=== PATIENT | female | born 1985 | race Caucasian/White ===

== ENCOUNTER 2016-10-21 17:06 | Emergency (ER) | payer MEDICAID, OTHER ==
[~2016-10-21] VITALS: Ht 157.5 cm; Wt 76.0 kg
[~2016-10-21 17:06] MED LIST: ALBU8.5H5 IH; ARIP10TA13 PO; LOSA25TA5 PO; OMEP20CA16 PO
[2016-10-21 17:12] VITALS: Ht 157.5 cm; Wt 76.0 kg
[2016-10-21] MEDS ORDERED: ONDANSETRON (ODT) 4 MG TAB ODT STA (18:47)
--- NOTE | 2016-10-21 19:09 | ERD ---
ER Documentation Chief Complaint Date/Time DATE: 10/21/16 TIME: 19:07 Chief Complaint Complains of nausea and vomiting x 1 week HPI 31 year old female presents here in the ER for complaints of cough x 1 week, nausea and vomiting, vomiting worst after coughing and eating, has hx of chronic gastritis. Patient has been having dry cough, does not cough up any phlegm or blood. Patient does not have any shortness breath or wheezing. Patient does not have any fever or chills. Patient does not have any sore throat or ear pain. Patient did not take any medications to help with symptoms. She denies any abdominal pain. Patient denies any diarrhea. ROS All systems reviewed and are negative except as per history of present illness. Medications Home Meds Reported Medications Albuterol Sulfate* (Albuterol Sulfate* HFA) 8.5 Gm Hfa.aer.ad, 2 PUFF IH Q4H Y for WHEEZING AND SOB, EA 12/06/13 Aripiprazole* (Abilify*) 10 Mg Tablet, 10 MG PO DAILY, TAB 12/06/13 Losartan Potassium* (Losartan Potassium*) 25 Mg Tablet, 25 MG PO DAILY, TAB 12/06/13 Omeprazole* (Omeprazole*) 20 Mg Capsule.dr, 20 MG PO DAILY, CAP 12/06/13 Allergies Allergies: Coded Allergies: No Known Drug Allergy (Verified Allergy, Unknown, 12/06/13) PMhx/Soc Medical and Surgical Hx: pt denies Medical Hx, pt denies Surgical Hx History of Surgery: No Anesthesia Reaction: No Hx Neurological Disorder: No Hx Respiratory Disorders: No Hx Cardiac Disorders: No Hx Psychiatric Problems: No Hx Miscellaneous Medical Probl: No (DENIES SURGERIES/PMH) Hx Alcohol Use: No Hx Substance Use: No Hx Tobacco Use: No Smoking Status: Never smoker FmHx Family History: No coronary disease, No diabetes, No other Physical Exam Vitals Vital Signs Date Time Temp Pulse Resp B/P Pulse Ox O2 Delivery O2 Flow Rate FiO2 10/21/16 17:12 99.4 98 20 141/69 97 Physical Exam GENERAL: The patient is well developed and appropriate for usual state of health, in no apparent distress. CHEST: Clear to auscultation bilaterally. There are no rales, wheezes or rhonchi. HEART: Regular rate and rhythm. No murmurs, clicks, rubs or gallops. No S3 or S4. ABDOMEN: Soft, nontender and nondistended. Good bowel sounds. No rebound or guarding. No gross peritonitis. No gross organomegaly or masses. No Babcock sign or McBurney point tenderness. BACK: No midline or flank tenderness. EXTREMITIES: Equal pulses bilaterally. There is no peripheral clubbing, cyanosis or edema. No focal swelling or erythema. Full range of motion. Grossly neurovascularly intact. NEURO: Alert and oriented. Cranial nerves 2-12 intact. Motor strength in all 4 extremities with 5/5 strength. Sensation grossly intact. Normal speech and gait. SKIN: There is no apparent rash or petechia. The skin is warm and dry. HEMATOLOGIC AND LYMPHATIC: There is no evidence of excessive bruising or lymphedema. No gross cervical, axillary, or inguinal lymphadenopathy. Result Diagram: 10/21/16190610/21/161906 Results 24 hrs Laboratory Tests Test 10/21/16 19:02 10/21/16 19:07 Urine Color YELLOW Urine Clarity CLEAR Urine pH 5.0 Urine Specific [place] 1.020 Urine Ketones NEGATIVEmg/dL Urine Nitrite NEGATIVEmg/dL Urine Bilirubin NEGATIVEmg/dL Urine Urobilinogen NEGATIVEmg/dL Urine Leukocyte Esterase 1+Melissa/ul Urine Microscopic RBC 1/HPF Urine Microscopic WBC 8/HPF Urine Squamous Epithelial Cells FEW/HPF Urine Bacteria FEW/HPF Urine Hemoglobin NEGATIVEmg/dL Urine Glucose NEGATIVEmg/dL Urine Total Protein NEGATIVEmg/dl White Blood Count 14.710^3/ul Red Blood Count 4.7610^6/ul Hemoglobin 12.7g/dl Hematocrit 40.1% Mean Corpuscular Volume 84.2fl Mean Corpuscular Hemoglobin 26.7pg Mean Corpuscular Hemoglobin Concent 31.7g/dl Red Cell Distribution Width 13.3% Platelet Count 58225^3/UL Mean Platelet Volume 9.5fl Neutrophils % 63.8% Lymphocytes % 28.1% Monocytes % 6.0% Eosinophils % 1.2% Basophils % 0.5% Nucleated Red Blood Cells % 0.0/100WBC Neutrophils # 9.410^3/ul Lymphocytes # 4.110^3/ul Monocytes # 0.910^3/ul Eosinophils # 0.210^3/ul Basophils # 0.110^3/ul Nucleated Red Blood Cells # 0.010^3/ul Sodium Level 143mmol/L Potassium Level 3.8mmol/L Chloride Level 101mmol/L Carbon Dioxide Level 25mmol/L Anion Gap 21 Blood Urea Nitrogen 11mg/dl Creatinine 0.87mg/dl Glucose Level 93mg/dl Calcium Level 9.7mg/dl Total Bilirubin 0.0mg/dl Direct Bilirubin 0.00mg/dl Indirect Bilirubin 0.0mg/dl Aspartate Amino Transf (AST/SGOT) 25IU/L Alanine Aminotransferase (ALT/SGPT) 35IU/L Alkaline Phosphatase 78IU/L Total Protein 8.1g/dl Albumin 4.7g/dl Globulin 3.40g/dl Albumin/Globulin Ratio 1.38 Lipase 114U/L Current Medications Medications (Trade) Dose Ordered Sig/Maria Esther Route PRN Reason Start Time Stop Time Status Last Admin Dose Admin Ondansetron HCl (Zofran Odt) 4 mg ONCE STAT ODT 10/21/16 18:47 10/21/16 18:49 DC 10/21/16 19:03 Patient was given Zofran here in the emergency department. After treatment, patient was able to tolerate po fluids here in the emergency department without any vomiting. There is no signs and symptoms of dehydration. PROCEDURE: XR Chest AP portable CLINICAL INDICATION: Cough x1 week TECHNIQUE: An AP portable radiograph of the chest was submitted. COMPARISON: 12/06/[address] done 09/30/2012 FINDINGS: Support Hardware: None Cardiovascular: The cardiovascular silhouette appears unremarkable aside from the mediastinum being leftward Lung Iverson: There is persistent left lower lobe atelectasis with the previous CT demonstrating scarring and extensive cylindrical bronchiectasis within the left lower lobe and Pleural Spaces: No pleural fluid accumulation pneumothorax is evident. Osseous Structures: The osseous structures appear intact. Soft Tissues: The soft tissues appear generous. IMPRESSION: 1. Chronic left lower lobe volume loss which previous CT demonstrated scarring and cylindrical bronchiectasis. 2. The mediastinum is shifted leftward but the cardiovascular structures otherwise remain unremarkable. Physician Dionte Date Time Electronically viewed and signed by Physician Dionte on 10/21/2016 20:06 RH/ CC: GREG CHANDRA [employer] Procedures/MDM Medical Decision Making: Patient symptoms are most likely consistent with most likely consistent with upper respiratory tract infection, most like patient's vomiting is from posttussive vomiting. There was also an incidental finding of a urinary tract infection, no symptoms of pyelonephritis at this time.. There is low suspicion for Pneumonia at this time since patients lungs sounds are clear, patient O2 saturation is normal and patient doesnt show any respiratory distress. Patients chest xray doesnt show infiltrates or any other cardiopulmonary emergencies at this time. There is low suspicion for other cardiopulmonary emergencies at this time such as CHF, Pulmonary Embolism, Pneumothorax, or any other cardiopulmonary emergencies at this time. There is low suspicion for sepsis. Patient appears well and is hemodynamically stable. Fever is controlled with medicines. Disposition: Home. Condition: Stable Prescriptions: Ciprofloxacin, Zofran, guaifenesin DM, Zyrtec Instructions: Patient is advised to take medications as prescribed. Patient is advised to rest. Patient advised to increase fluid intake, do humidifier at home and if possible, do salt water gargles. Patient is advised that if symptoms are worse, shortness of breath, uncontrolled fever, stridor, vomiting, worst signs and symptoms to return to emergency department immediately. Otherwise, patient is advised to follow up with primary doctor in 5-7 days. Departure Diagnosis: Primary Impression: URI (upper respiratory infection) URI type: unspecified viral URI Qualified Code: J06.9 - Viral upper respiratory tract infection Additional Impressions: Vomiting Vomiting type: unspecified Vomiting Intractability: unspecified Nausea presence: unspecified Qualified Code: R11.10 - Vomiting, intractability of vomiting not specified, presence of nausea not specified, unspecified vomiting type UTI (urinary tract infection) Urinary tract infection type: acute cystitis Hematuria presence: without hematuria Qualified Code: N30.00 - Acute cystitis without hematuria Condition: Stable Patient Instructions: Understanding Urinary Tract Infections (UTIs), Uri, Viral , No Abx (Adult), Vomiting (6Y-Adult) GREG CHANDRA NP Oct 21, 2016 19:09
[2016-10-21 19:26] LABS: BASOPHIL # 0.1 10^3/ul (0.0-0.1); BASOPHILS % 0.5 % (0.0-2.0); EOSINOPHILS # 0.2 10^3/ul (0.0-0.5); EOSINOPHILS % 1.2 % (0.0-7.0); HEMATOCRIT 40.1 % (37.0-47.0); HEMOGLOBIN 12.7 g/dl (12.0-16.0); LYMPHOCYTES # 4.1 10^3/ul (0.8-2.9); LYMPHOCYTES % 28.1 % (15.0-51.0); MEAN CORPUSCULAR HEMOGLOBIN 26.7 pg (29.0-33.0); MEAN CORPUSCULAR HGB CONC 31.7 g/dl (32.0-37.0); MEAN CORPUSCULAR VOLUME 84.2 fl (82.0-101.0); MEAN PLATELET VOLUME 9.5 fl (7.4-10.4); MONOCYTE # 0.9 10^3/ul (0.3-0.9); NEUTROPHIL # 9.4 10^3/ul (1.6-7.5); NEUTROPHILS % 63.8 % (39.0-77.0); PLATELET COUNT 379 10^3/UL (140-415); RED BLOOD COUNT 4.76 10^6/ul (4.20-5.40); RED CELL DISTRIBUTION WIDTH 13.3 % (11.5-14.5); WHITE BLOOD COUNT 14.7 10^3/ul (4.8-10.8)
[2016-10-21 19:32] LABS: ADD UMIC YES; UR ASCORBIC ACID NEGATIVE (NEGATIVE); UR BACTERIA FEW /HPF (NONE SEEN); UR BILIRUBIN (Dip) NEGATIVE (NEGATIVE); UR BLOOD (Dip) NEGATIVE (NEGATIVE); UR CLARITY CLEAR (CLEAR); UR COLOR YELLOW (YELLOW); UR GLUCOSE (Dip) NEGATIVE (NEGATIVE); UR KETONES (Dip) NEGATIVE (NEGATIVE); UR LEUKOCYTE ESTERASE (Dip) 1+ Leu/ul (NEGATIVE); UR NITRITE (Dip) NEGATIVE (NEGATIVE); UR RBC 1 /HPF (0-5); UR SQUAMOUS EPITHELIAL CELL FEW /HPF (FEW); UR TOTAL PROTEIN (Dip) NEGATIVE (NEGATIVE); UR UROBILINOGEN (Dip) NEGATIVE (NEGATIVE)
[2016-10-21 19:45] LABS: ALBUMIN 4.7 g/dl (3.3-4.9); ALBUMIN/GLOBULIN RATIO 1.38; CALCIUM 9.7 mg/dl (8.4-10.2); CREATININE 0.87 mg/dl (0.44-1.00); POTASSIUM 3.8 mmol/L (3.5-5.1); TOTAL PROTEIN 8.1 g/dl (6.1-8.1)
--- NOTE | 2016-10-21 20:06 | RADRPT ---
PROCEDURE: XR Chest AP portable CLINICAL INDICATION: Cough x1 week TECHNIQUE: An AP portable radiograph of the chest was submitted. COMPARISON: 12/06/[address] done 09/30/2012 FINDINGS: Support Hardware: None Cardiovascular: The cardiovascular silhouette appears unremarkable aside from the mediastinum being leftward Lung Iverson: There is persistent left lower lobe atelectasis with the previous CT demonstrating scar ring and extensive cylindrical bronchiectasis within the left lower lobe and Pleural Spaces: No pleural fluid accumulation pneumothorax is evident. Osseous Structures: The osseous structures appear intact. Soft Tissues: The soft tissues appear generous. IMPRESSION: 1. Chronic left lower lobe volume loss which previous CT demonstrated scarring and cylindrical bron chiectasis. 2. The mediastinum is shifted leftward but the cardiovascular structures otherwise remain unremarka ble. Physician Dionte Date Time Electronically viewed and signed by Ilya Robert Physician on 10/21/2016 20:06 /
[2016-10-21] MEDS ORDERED: ONDA4TAB14 PO (20:13)
[2016-10-21] MEDS ORDERED: CIPR500T4 PO (20:13)
[2016-10-21] MEDS ORDERED: GUAI120S26 PO (20:13)
[2016-10-21] MEDS ORDERED: ACET500C5 PO (20:13)
[2016-10-21 20:35] VITALS: BP 115/70; PULSE 76; RESP 18
== END 2016-10-21 20:38 | disposition home or self-care (01) ==
LOC: FTE 17:06
DX: J06.9 Acute upper respiratory infection, unspecified (principal); R11.10 Vomiting, unspecified; N30.00 Acute cystitis without hematuria
CPT/HCPCS: 36415; 71010; 80053; 81001; 83690; 85025; Z7502; Z7610

== ENCOUNTER 2016-11-02 18:21 | Emergency (ER) | payer OTHER ==
[~2016-11-02] VITALS: Ht 160 cm; Wt 67.0 kg
[~2016-11-02 18:21] MED LIST changes: +ACET500C5 PO; +CIPR500T4 PO; +GUAI120S26 PO; +ONDA4TAB14 PO
[2016-11-02 18:23] VITALS: Ht 160 cm; Wt 67.0 kg
[2016-11-02] MEDS ORDERED: ONDANSETRON 4 MG INJ IV STA (20:43)
[2016-11-02] MEDS ORDERED: morphine 4 MG/ML VIAL IV STA (20:43)
[2016-11-02] MEDS ORDERED: CEFTRIAXONE 1 GM/50 ML (PMX) 50 ML IVPB STA (20:43)
[2016-11-02] MEDS ORDERED: SOD CHLORIDE 0.9% 1,000 ML IV STA (20:43)
--- NOTE | 2016-11-02 20:49 | ERD ---
ER Documentation Chief Complaint Date/Time DATE: 11/02/16 TIME: 20:48 Chief Complaint l side flank pain with blood in urine, gave medicaijericho for uti,no result HPI 31-year-old otherwise healthy female presents the emergency department for left sided flank pain, hematuria, dysuria, and fever and chills. Patient states her symptoms began 2 weeks ago and gradually worsened. She states she was seen and evaluated by this emergency department 1 week ago and treated for urinary tract infection with ciprofloxacin. Patient states she completed the antibiotic course but has not noticed significant improvement and still is experiencing the same symptoms along with fever and chills intermittently. She currently rates her pain as intermittent 5 out of 10 throbbing left sided flank pain which is worse with pressure to the area. She states she has been taking Motrin and Tylenol for symptomatic relief. She denies any nausea, vomiting, diarrhea, abdominal pain, vaginal discharge, dizziness, chest pain, shortness of breath. ROS All systems reviewed and are negative except as per history of present illness. Medications Home Meds Active Scripts Naproxen* (Naprosyn*) 500 Mg Tablet, 500 MG PO BID Y for PAIN AND/OR INFLAMMATION, #30 TAB Prov:DARY PARKER PA-C 11/02/16 Phenazopyridine Hcl* (Pyridium*) 100 Mg Tab, 100 MG PO TID Y for URINARY PAIN, # 8 TAB Prov:DARY PARKER PA-C 11/02/16 Cephalexin* (Keflex*) 500 Mg Capsule, 500 MG PO QID for 7 Days, CAP Prov:DARY PARKER PA-C 11/02/16 Acetaminophen* (Tylophen*) 500 Mg Capsule, 1 CAP PO Q6H Y for PAIN AND OR ELEVATED TEMP, #20 CAP Prov:GREG CHANDRA NP 10/21/16 Hosmlkgvnyn-T-Pkhcutyxkv Hb* (Guaifenesin* DM Syrup) 120 Ml Syrup, 10 ML PO Q4H Y for COUGH, #120 ML Prov:GREG CHANDRA NP 10/21/16 Ondansetron (Ondansetron Odt) 4 Mg Tab.rapdis, 4 MG PO Q8 Y for NAUSEA AND/OR VOMITING, #30 TAB Prov:GREG CHANDRA NP 10/21/16 Ciprofloxacin Hcl* (Ciprofloxacin Hcl*) 500 Mg Tablet, 500 MG PO BID for 10 Days , TAB Prov:CORAZONGREG Hannon NP 10/21/16 Reported Medications Albuterol Sulfate* (Albuterol Sulfate* HFA) 8.5 Gm Hfa.aer.ad, 2 PUFF IH Q4H Y for WHEEZING AND SOB, EA 12/06/13 Aripiprazole* (Abilify*) 10 Mg Tablet, 10 MG PO DAILY, TAB 12/06/13 Losartan Potassium* (Losartan Potassium*) 25 Mg Tablet, 25 MG PO DAILY, TAB 12/06/13 Omeprazole* (Omeprazole*) 20 Mg Capsule.dr, 20 MG PO DAILY, CAP 12/06/13 Allergies Allergies: Coded Allergies: No Known Drug Allergy (Verified Allergy, Unknown, 12/06/13) PMhx/Soc History of Surgery: No Anesthesia Reaction: No Hx Neurological Disorder: No Hx Respiratory Disorders: No Hx Cardiac Disorders: No Hx Psychiatric Problems: No Hx Miscellaneous Medical Probl: No (DENIES SURGERIES/PMH) Hx Alcohol Use: No Hx Substance Use: No Hx Tobacco Use: No Smoking Status: Never smoker Physical Exam Vitals Vital Signs Date Time Temp Pulse Resp B/P Pulse Ox O2 Delivery O2 Flow Rate FiO2 11/02/16 18:23 97.8 72 18 118/65 96 Physical Exam Const: Well-developed, well-nourished, in no acute distress Head: Atraumatic Neck: Full range of motion..~ No meningismus. Resp: Clear to auscultation bilaterally Cardio: Regular rate and rhythm, no murmurs Abd: Soft, non tender, non distended. Normal bowel sounds Skin: No petechiae or rashes Back: Left-sided flank tenderness to palpation. No midline tenderness Ext: No cyanosis, or edema Neur: Awake and alert Psych: Normal Mood and Affect Result Diagram: 11/02/16210411/02/162104 Results 24 hrs Laboratory Tests Test 11/02/16 21:05 White Blood Count 12.510^3/ul Red Blood Count 4.8210^6/ul Hemoglobin 12.9g/dl Hematocrit 40.4% Mean Corpuscular Volume 83.8fl Mean Corpuscular Hemoglobin 26.8pg Mean Corpuscular Hemoglobin Concent 31.9g/dl Red Cell Distribution Width 13.2% Platelet Count 49280^3/UL Mean Platelet Volume 9.5fl Neutrophils % 60.5% Lymphocytes % 32.5% Monocytes % 5.4% Eosinophils % 1.0% Basophils % 0.3% Nucleated Red Blood Cells % 0.0/100WBC Neutrophils # (Manual) 810^3/ul Lymphocytes # 4.110^3/ul Monocytes # 0.710^3/ul Eosinophils # 0.110^3/ul Basophils # 0.010^3/ul Nucleated Red Blood Cells # 0.010^3/ul Urine Color STRAW Urine Clarity CLEAR Urine pH 6.0 Urine Specific [place] 1.008 Urine Ketones NEGATIVEmg/dL Urine Nitrite NEGATIVEmg/dL Urine Bilirubin NEGATIVEmg/dL Urine Urobilinogen NEGATIVEmg/dL Urine Leukocyte Esterase 2+Melissa/ul Urine Microscopic RBC 1/HPF Urine Microscopic WBC 3/HPF Urine Bacteria FEW/HPF Urine Hemoglobin 2+mg/dL Urine Glucose NEGATIVEmg/dL Urine Total Protein NEGATIVEmg/dl Sodium Level 143mmol/L Potassium Level 3.9mmol/L Chloride Level 101mmol/L Carbon Dioxide Level 27mmol/L Anion Gap 19 Blood Urea Nitrogen 11mg/dl Creatinine 0.72mg/dl Glucose Level 80mg/dl Calcium Level 9.7mg/dl Total Bilirubin 0.1mg/dl Direct Bilirubin 0.00mg/dl Indirect Bilirubin 0.1mg/dl Aspartate Amino Transf (AST/SGOT) 26IU/L Alanine Aminotransferase (ALT/SGPT) 46IU/L Alkaline Phosphatase 73IU/L Total Protein 7.6g/dl Albumin 4.5g/dl Globulin 3.10g/dl Albumin/Globulin Ratio 1.45 Lipase 101U/L Current Medications Medications (Trade) Dose Ordered Sig/Maria Esther Route PRN Reason Start Time Stop Time Status Last Admin Dose Admin Sodium Chloride (NS) 1,000 ml @ 1,000 mls/hr Q1H STAT IV 11/02/16 20:43 11/02/16 21:42 DC 11/02/16 21:03 Morphine Sulfate (morphine) 4 mg ONCE STAT IV 11/02/16 20:43 11/02/16 20:47 DC 11/02/16 21:02 Ondansetron HCl 4 mg 4 mg ONCE STAT IV 11/02/16 20:43 11/02/16 20:47 DC 11/02/16 21:02 Ceftriaxone Sodium (Rocephin) 50 ml @ 100 mls/hr ONCE STAT IVPB 11/02/16 20:43 11/02/16 21:12 DC 11/02/16 21:02 Procedures/MDM This is an otherwise healthy 31-year-old female who presents emergency department for refractory intermittent mild left-sided flank pain, hematuria, dysuria, fever and chills 2 weeks, despite being treated for UTI 1 week ago with ciprofloxacin. Patient states she has been compliant with her antibiotics thus far. She denies any nausea, vomiting, diarrhea, weakness, dizziness, chest pain or shortness of breath. Vital signs reviewed. Patient afebrile, non -tachycardic, normotensive and non-hypoxic upon arrival. Patient well- appearing and nontoxic. Physical exam with evidence of mild left sided flank tenderness. CBC showed evidence of slightly elevated white blood cells to 12.5, this is likely due to her urinary tract infection. Otherwise no evidence of severe anemia. CMP showed no evidence of electrolyte abnormalities, severe acidosis, alkalosis , renal failure, or liver disease. Lipase showed no evidence of acute pancreatitis. UA showed evidence of bacteremia, 2+ hematuria and 2+ leukocyte esterase, consistent with urinary tract infection Urine was sent for culture. Urine sent for gonorrhea and chlamydia screening Urine test was negative. Patient received 1 dose of ceftriaxone while in the emergency department, as well as pain medication and fluids and reports significant improvement of her symptoms. History and physical exam consistent with urinary tract infection versus pyelonephritis, however patient is well-appearing, nontoxic, normotensive and afebrile upon arrival. Laboratory results without evidence of acute renal injury, anemia, or evidence of severe systemic infection. At this time I do not believe admission to the hospital is warranted as I have low suspicion for acute renal failure, surgical renal stone, ovarian torsion, tubo-ovarian abscess , severe systemic illness or sepsis. Patient to continue Keflex at home pending urine culture results. Patient feels stable and safe for discharge. She expressed understanding of and agreement with plan. Strict return precautions discussed. Based on patient's history of present illness and physical examination the decision was made to discharge. The patient was re-evaluated after ED treatment and stabilizing measures, and symptoms have improved. There is no evidence of life threatening injuries or illnesses at this time. On re-examination, patient resting in no distress, stable vital signs, reports feeling better and safe for discharge with outpatient follow up with PMD in 1-2 days. Patient given return precautions. Departure Diagnosis: Primary Impression: Flank pain Additional Impressions: Dysuria Hematuria DARY PARKER PA-C Nov 02, 2016 20:49
[2016-11-02 21:19] LABS: BASOPHILS % 0.3 % (0.0-2.0); EOSINOPHILS # 0.1 10^3/ul (0.0-0.5); HEMATOCRIT 40.4 % (37.0-47.0); HEMOGLOBIN 12.9 g/dl (12.0-16.0); LYMPHOCYTES # 4.1 10^3/ul (0.8-2.9); LYMPHOCYTES % 32.5 % (15.0-51.0); MEAN CORPUSCULAR HEMOGLOBIN 26.8 pg (29.0-33.0); MEAN CORPUSCULAR HGB CONC 31.9 g/dl (32.0-37.0); MEAN CORPUSCULAR VOLUME 83.8 fl (82.0-101.0); MEAN PLATELET VOLUME 9.5 fl (7.4-10.4); MONOCYTE # 0.7 10^3/ul (0.3-0.9); MONOCYTES % 5.4 % (0.0-11.0); NEUTROPHILS % 60.5 % (39.0-77.0); PLATELET COUNT 356 10^3/UL (140-415); RED BLOOD COUNT 4.82 10^6/ul (4.20-5.40); RED CELL DISTRIBUTION WIDTH 13.2 % (11.5-14.5); WHITE BLOOD COUNT 12.5 10^3/ul (4.8-10.8)
[2016-11-02 21:25] LABS: ADD UMIC YES; UR ASCORBIC ACID NEGATIVE (NEGATIVE); UR BACTERIA FEW /HPF (NONE SEEN); UR BILIRUBIN (Dip) NEGATIVE (NEGATIVE); UR BLOOD (Dip) 2+ mg/dL (NEGATIVE); UR CLARITY CLEAR (CLEAR); UR COLOR STRAW (YELLOW); UR GLUCOSE (Dip) NEGATIVE (NEGATIVE); UR KETONES (Dip) NEGATIVE (NEGATIVE); UR LEUKOCYTE ESTERASE (Dip) 2+ Leu/ul (NEGATIVE); UR NITRITE (Dip) NEGATIVE (NEGATIVE); UR RBC 1 /HPF (0-5); UR SPECIFIC GRAVITY (Dip) 1.008 (1.003-1.030); UR TOTAL PROTEIN (Dip) NEGATIVE (NEGATIVE); UR UROBILINOGEN (Dip) NEGATIVE (NEGATIVE)
[2016-11-02 21:39] LABS: ALBUMIN 4.5 g/dl (3.3-4.9); ALBUMIN/GLOBULIN RATIO 1.45; BILIRUBIN,INDIRECT 0.1 mg/dl (0-1.1); BILIRUBIN,TOTAL 0.1 mg/dl (0.2-1.3); CALCIUM 9.7 mg/dl (8.4-10.2); CREATININE 0.72 mg/dl (0.44-1.00); POTASSIUM 3.9 mmol/L (3.5-5.1); TOTAL PROTEIN 7.6 g/dl (6.1-8.1)
[2016-11-02] MEDS ORDERED: PHEN-537 PO (22:18)
[2016-11-02] MEDS ORDERED: CEPH-443 PO (22:18)
[2016-11-02] MEDS ORDERED: NAPR-260 PO (22:18)
[2016-11-02 22:44] VITALS: BP 116/62; PULSE 65; RESP 18; TEMP 98.3
== END 2016-11-02 22:45 | disposition home or self-care (01) ==
LOC: FTE 18:21
DX: R10.9 Unspecified abdominal pain (principal); R30.0 Dysuria; R31.9 Hematuria, unspecified
CPT/HCPCS: 36415; 80053; 81001; 83690; 85025; 87040; 87086; 87591; 96374; 96375; J0696; J2270; J2405; J7030; Z7502

== ENCOUNTER 2017-01-11 15:01 | Emergency (ER) | payer OTHER ==
[~2017-01-11] VITALS: Ht 157.5 cm; Wt 72.0 kg
[~2017-01-11 15:01] MED LIST changes: +CEPH-443 PO; +NAPR-260 PO; +PHEN-537 PO
[2017-01-11 15:03] VITALS: Ht 157.5 cm; Wt 72.0 kg
[2017-01-11 15:47] LABS: URINE BLOOD (Dip) POC 1+ (NEGATIVE)
--- NOTE | 2017-01-11 15:54 | ERD ---
ER Documentation Chief Complaint Chief Complaint pelvic pain , back pain , burning urination HPI 30-year-old female comes emergency department left-sided pelvic pain, painful urination, and right-sided low back pain that started about a week ago. The patient has been seen by ophthalmic technician apprentice outpatient had a transabdominal ultrasound that shows a fibroid as well as heterogenicity on the left ovary. This was not entirely visualized as it was a transabdominal ultrasound and the patient is currently waiting to be approved to get a transvaginal ultrasound. Principal Software Engineer also is treating her for yeast infection and gave her suppository cream and Diflucan which she is currently taking. She presents with painful urination but no urgency or frequency or fevers or chills. She denies vaginal bleeding. ROS All systems reviewed and are negative except as per history of present illness. Medications Home Meds Active Scripts Nitrofurantoin Monohyd Macrocr* (Macrobid*) 100 Mg Capsr, 100 MG PO BID for 5 Days, CAP Prov:REG SABA PA-C 01/11/17 Ibuprofen* (Motrin*) 600 Mg Tab, 600 MG PO Q6, #30 TAB Prov:REG SABA PA-C 01/11/17 Naproxen* (Naprosyn*) 500 Mg Tablet, 500 MG PO BID Y for PAIN AND/OR INFLAMMATION, #30 TAB Prov:DARY PARKER PA-C 11/02/16 Phenazopyridine Hcl* (Pyridium*) 100 Mg Tab, 100 MG PO TID Y for URINARY PAIN, # 8 TAB Prov:DARY PARKER PA-C 11/02/16 Cephalexin* (Keflex*) 500 Mg Capsule, 500 MG PO QID for 7 Days, CAP Prov:DARY PARKER PA-C 11/02/16 Acetaminophen* (Tylophen*) 500 Mg Capsule, 1 CAP PO Q6H Y for PAIN AND OR ELEVATED TEMP, #20 CAP Prov:GREG CHANDRA NP 10/21/16 Jrsflzdijlw-M-Vgmpiahqpq Hb* (Guaifenesin* DM Syrup) 120 Ml Syrup, 10 ML PO Q4H Y for COUGH, #120 ML Prov:GREG CHANDRA NP 10/21/16 Ondansetron (Ondansetron Odt) 4 Mg Tab.rapdis, 4 MG PO Q8 Y for NAUSEA AND/OR VOMITING, #30 TAB Prov:JAELYNPRANAVGREG COLMENARES ECONOMIC DEVELOPER 10/21/16 Ciprofloxacin Hcl* (Ciprofloxacin Hcl*) 500 Mg Tablet, 500 MG PO BID for 10 Days , TAB Prov:GREG CHANDRA EDNA Hannon ECONOMIC DEVELOPER 10/21/16 Reported Medications Albuterol Sulfate* (Albuterol Sulfate* HFA) 8.5 Gm Hfa.aer.ad, 2 PUFF IH Q4H Y for WHEEZING AND SOB, EA 12/06/13 Aripiprazole* (Abilify*) 10 Mg Tablet, 10 MG PO DAILY, TAB 12/06/13 Losartan Potassium* (Losartan Potassium*) 25 Mg Tablet, 25 MG PO DAILY, TAB 12/06/13 Omeprazole* (Omeprazole*) 20 Mg Capsule.dr, 20 MG PO DAILY, CAP 12/06/13 Allergies Allergies: Coded Allergies: No Known Drug Allergy (Verified Allergy, Unknown, 12/06/13) PMhx/Soc History of Surgery: No Anesthesia Reaction: No Hx Neurological Disorder: No Hx Respiratory Disorders: No Hx Cardiac Disorders: No Hx Psychiatric Problems: No Hx Miscellaneous Medical Probl: Yes (Hypertension, diabetes, asthma) Hx Alcohol Use: No Hx Substance Use: No Hx Tobacco Use: No Physical Exam Vitals Vital Signs Date Time Temp Pulse Resp B/P Pulse Ox O2 Delivery O2 Flow Rate FiO2 01/11/17 15:03 98.7 83 18 123/72 98 Physical Exam General: Well-developed, well-nourished. The patient appears in no acute distress. HEENT: Head is normocephalic, atraumatic. No scleral icterus. Neck: Supple. Nontender. Lungs: Clear to auscultation. Normal air movement. Heart: Regular rate and rhythm. S1 and S2 are normal. No murmurs, gallops, or rubs. Abdomen: Soft, pain in the left lower quadrant, and the lower pelvic region, no rebound pain, no guarding, no masses, no hepatosplenomegaly, no McBurney's tenderness. Nondistended. Bowel sounds are normoactive. No CVA tenderness. Extremities: No clubbing or cyanosis. Normal pulses. Moving extremities x 4. No weakness. Neurologic: Alert and oriented 3. No focal deficits. Skin: Normal turgor. No rash or lesions. Results 24 hrs Laboratory Tests Test 01/11/17 15:45 Bedside Urine pH (LAB) 5.5 Bedside Urine Protein (LAB) Negative Bedside Urine Glucose (UA) Negative Bedside Urine Ketones (LAB) Negative Bedside Urine Blood 1+ Bedside Urine Nitrite (LAB) Negative Bedside Urine Leukocyte Esterase (L Negative Procedures/MDM 28-year-old female comes in with left-sided pelvic pain, has a uterine fibroid. No adnexal masses. Otherwise her ultrasound is normal. She does complain of dysuria and states that she has had similar symptoms when she was seen here previously with a urinary tract infection, and we treated based on her symptoms of dysuria and pelvic pain. She does not have any history concerning for PID, cervicitis, ectopic , tubo-ovarian abscess or ovarian torsion. Her workup has already been started by her ophthalmic technician apprentice outpatient who is seen her, has some blood work as well as a pelvic ultrasound. I have asked her to follow- up with her ophthalmic technician apprentice shortly next week. Departure Diagnosis: Primary Impression: Uterine fibroid Additional Impression: Dysuria Condition: REG Harvey PA-C Jan 11, 2017 15:54
--- NOTE | 2017-01-11 16:23 | RADRPT ---
PROCEDURE: US Pelvis. CLINICAL INDICATION: Pelvic pain. TECHNIQUE: The pelvis was evaluated with transabdominal and transvaginal sonography in the axial a nd sagittal planes. COMPARISON: No prior study is available for comparison. FINDINGS: Uterus: 8.7 x 6.1 x 7.3 cm. Endometrium: 2.9 mm. Right ovary: 3.2 x 2.0 x 2.5 cm. Left ovary: 3.2 x 1.7 x 2.1 cm. Uterine masses: There is a posterior hypoechoic mass in the fundus of the uterus consistent with a f ibroid measuring 3.0 x 2.1 x 3.2 cm. Ovarian masses: None. Color Doppler and pulsed Doppler sonography demonstrate normal flow to the ova sierra. Other pelvic masses: None. Free fluid: None. IMPRESSION: 1. Posterior fundal fibroid in the uterus measuring 3.2 cm in maximal dimension. 2. Otherwise normal pelvic ultrasound. RPTAT: QQ .Chet Bradford MD, Date Time Electronically viewed and signed by .Chet Bradford MD, on 01/11/2017 16:22 .R/
[2017-01-11] MEDS ORDERED: NITR-58 PO (16:29)
[2017-01-11] MEDS ORDERED: IBUP-1542 PO (16:29)
== END 2017-01-11 16:44 | disposition home or self-care (01) ==
LOC: FTE 15:01
DX: D25.9 Leiomyoma of uterus, unspecified (principal); R30.0 Dysuria; I10 Essential (primary) hypertension; E11.9 Type 2 diabetes mellitus without complications; J45.909 Unspecified asthma, uncomplicated
CPT/HCPCS: 76830; 76856; 81003

== ENCOUNTER 2017-11-14 14:13 | Emergency (ER) | END 2017-11-14 17:29 | disposition home or self-care (01) ==

== ENCOUNTER 2018-05-17 08:54 | Emergency (ER) | payer OTHER ==
[~2018-05-17] VITALS: Ht 160 cm; Wt 79.2 kg
[~2018-05-17 08:54] MED LIST changes: +ARIP10TA12 PO; -ARIP10TA13 PO; +IBUP-1542 PO; +LOSA25TA12 PO; -LOSA25TA5 PO; -NAPR-260 PO; +NAPR-985 PO; +NITR-58 PO
[2018-05-17 08:58] VITALS: Ht 160 cm; Wt 79.2 kg
[2018-05-17] MEDS ORDERED: ALBUTEROL 0.083% (NEB) 2.5 MG/3 ML AMP NEB STA (09:40)
[2018-05-17] MEDS ORDERED: IPRATROPIUM (NEB) 0.5 MG/2.5 ML AMP NEB STA (09:40)
[2018-05-17] MEDS ORDERED: DEXAMETHASONE 10 MG/ML 1 ML INJ PO ONE (10:00)
--- NOTE | 2018-05-17 10:34 | ERD ---
ER Documentation Chief Complaint Chief Complaint back & rib x1wk, asthma problem HPI 33-year-old female is here complaining of asthma exacerbation for about a week that is not relieved by her albuterol nebulizer at home. Also has a cough and when she coughs she has left lateral rib cage pain. No fever. She also has low back pain. No urinary symptoms but states she has had urinary tract infections in the past so she would still like to have her urine checked. ROS All systems reviewed and are negative except as per history of present illness. Medications Home Meds Active Scripts Acetaminophen* (Tylophen*) 500 Mg Capsule, 1 CAP PO Q6H PRN for PAIN AND OR ELEVATED TEMP, #30 CAP Prov:MARY REDMAN PA-C 11/14/17 Nitrofurantoin Monohyd Macrocr* (Macrobid*) 100 Mg Capsr, 100 MG PO BID for 7 Days, CAP Prov:MRAY REDMAN PA-C 11/14/17 Nitrofurantoin Monohyd Macrocr* (Macrobid*) 100 Mg Capsr, 100 MG PO BID for 5 Days, CAP Prov:REG SABA PA-C 01/11/17 Ibuprofen* (Motrin*) 600 Mg Tab, 600 MG PO Q6, #30 TAB Prov:REG SABA PA-C 01/11/17 Naproxen* (Naprosyn*) 500 Mg Tablet, 500 MG PO BID PRN for PAIN AND/OR INFLAMMATION, #30 TAB Prov:DARY PARKER PA-C 11/02/16 Phenazopyridine Hcl* (Pyridium*) 100 Mg Tab, 100 MG PO TID PRN for URINARY PAIN, #8 TAB Prov:DARY PARKER PA-C 11/02/16 Cephalexin* (Keflex*) 500 Mg Capsule, 500 MG PO QID for 7 Days, CAP Prov:DARY PARKER PA-C 11/02/16 Acetaminophen* (Tylophen*) 500 Mg Capsule, 1 CAP PO Q6H PRN for PAIN AND OR ELEVATED TEMP, #20 CAP Prov:GREG CHANDRA NP 10/21/16 Lycvdwlpqhd-X-Xopnpvomzw Hb* (Guaifenesin* DM Syrup) 120 Ml Syrup, 10 ML PO Q4H PRN for COUGH, #120 ML Prov:GREG CHANDRA NP 10/21/16 Ondansetron (Ondansetron Odt) 4 Mg Tab.rapdis, 4 MG PO Q8 PRN for NAUSEA AND/OR VOMITING, #30 TAB Prov:GREG CHANDRA NP 10/21/16 Ciprofloxacin Hcl* (Ciprofloxacin Hcl*) 500 Mg Tablet, 500 MG PO BID for 10 Days, TAB Prov:GREG CHANDRA NP 10/21/16 Reported Medications Albuterol Sulfate* (Albuterol Sulfate* HFA) 8.5 Gm Hfa.aer.ad, 2 PUFF IH Q4H PRN for WHEEZING AND SOB, EA 12/06/13 Aripiprazole* (Abilify*) 10 Mg Tablet, 10 MG PO DAILY, TAB 12/06/13 Losartan Potassium* (Losartan Potassium*) 25 Mg Tablet, 25 MG PO DAILY, TAB 12/06/13 Omeprazole* (Omeprazole*) 20 Mg Capsule.dr, 20 MG PO DAILY, CAP 12/06/13 Allergies Allergies: Coded Allergies: No Known Drug Allergy (Verified Allergy, Unknown, 05/17/18) PMhx/Soc History of Surgery: No Anesthesia Reaction: No Hx Neurological Disorder: No Hx Respiratory Disorders: Yes (Asthma) Hx Cardiac Disorders: Yes (Hypertention) Hx Psychiatric Problems: No Hx Miscellaneous Medical Probl: Yes ( diabetes, ) Hx Alcohol Use: No Hx Substance Use: No Hx Tobacco Use: No Smoking Status: Never smoker FmHx Family History: No diabetes Physical Exam Vitals Vital Signs Date Temp Pulse Resp B/P (MAP) Pulse Ox O2 O2 Flow FiO2 Time Delivery Rate 05/17/18 79 20 99 21 09:54 05/17/18 98.6 87 18 152/81 99 08:58 (104) Physical Exam INITIAL VITAL SIGNS: Reviewed by me GENERAL: Awake, alert and oriented x 4, well appearing, nontoxic, speaking in full sentences. No acute distress HEAD: Atraumatic NECK: Supple. No masses. Full range of motion. No meningismus. No midline tenderness. EYES: EOMI. PERRL. RESPIRATORY: Clear to auscultation bilaterally. Symmetric chest wall rise. No wheezing or rales. No accessory muscle use. CV: Regular rate and rhythm. No murmurs, rubs, or gallops. ABDOMEN: Soft, non-distended. Nontender. Negative [place]. Negative [place] point tenderness. No CVA tenderness bilaterally. No guarding. No rebound. : Deffered. EXTREMITIES: No clubbing or cyanosis. No edema. Moving all extremities normally. Back Exam: Compartments: Soft Motor: Normal flexion and extension of bilateral hip/knee/ankle/foot Sensation: Intact to light touch throughout Bones: No midline TTP Results 24 hrs Laboratory Tests Test 05/17/18 09:59 05/17/18 10:00 Bedside Urine pH (LAB) 5.5 Bedside Urine Protein (LAB) Negative Bedside Urine Glucose (UA) Negative Bedside Urine Ketones (LAB) Negative Bedside Urine Blood Negative Bedside Urine Nitrite (LAB) Negative Bedside Urine Leukocyte Esterase (L Negative POC Beta HCG, Qualitative NEGATIVE Current Medications Medications Dose Sig/Maria Esther Start Time Status Last (Trade) Ordered Route PRN Stop Time Admin Dose Reason Admin Albuterol 5 mg ONCE STAT 05/17/18 DC 05/17/18 (Proventil NEB 09:40 05/17/18 09:52 0.083% (Neb)) 09:42 Ipratropium 0.5 mg ONCE STAT 05/17/18 DC 05/17/18 [place] NEB 09:40 05/17/18 09:52 (Atrovent 09:42 0.02% (Neb)) 10 mg ONCE ONCE 05/17/18 DC 05/17/18 Dexamethasone PO 10:00 05/17/18 10:03 (Decadron) 10:02 Procedures/MDM Patient is here complaining of cough and asthma exacerbation. Her lungs are clear but I still offered her a breathing treatment which she accepted and felt much better afterwards. Her chest x-ray is negative. Her urine is negative for infection. Patient counseled regarding my diagnostic impression and care plan. Prior to discharge all questions answered. Pt agrees with treatment plan and understands strict return precautions. Pt is instructed to follow up with primary care provider within 24-48 hours. Precautionary instructions provided including instructions to return to the ER if not improving or for any worsening or changing symptoms or concerns. Departure Diagnosis: Primary Impression: Back pain Additional Impression: Asthma Condition: Stable COURTNEY LOAIZA PA-C May 17, 2018 10:34
[2018-05-17] MEDS ORDERED: ALBU2.5V3 NEB (10:35)
[2018-05-17] MEDS ORDERED: ALBU8.5H8 INH (10:35)
[2018-05-17] MEDS ORDERED: IBUP-1542 PO (10:35)
[2018-05-17] MEDS ORDERED: FAMO40TA5 PO (10:52)
[2018-05-17 10:54] VITALS: BP 131/78; PULSE 91; RESP 18
== END 2018-05-17 11:00 | disposition home or self-care (01) ==
LOC: FTE 08:54
DX: J45.909 Unspecified asthma, uncomplicated (principal); M54.9 Dorsalgia, unspecified; I10 Essential (primary) hypertension; E11.9 Type 2 diabetes mellitus without complications
CPT/HCPCS: 71045; 81003; 81025; 94664; J1100; Z7502; Z7610

== ENCOUNTER 2018-11-16 17:09 | Emergency (ER) | payer OTHER ==
[~2018-11-16] VITALS: Ht 157.5 cm; Wt 78.6 kg
[~2018-11-16 17:09] MED LIST changes: +ALBU2.5V3 NEB; +ALBU8.5H8 INH; +FAMO40TA5 PO; +GUAI120S25 PO; -GUAI120S26 PO
[2018-11-16 17:12] VITALS: Ht 157.5 cm; Wt 78.6 kg
[2018-11-16] MEDS ORDERED: SOD CHLORIDE 0.9% 100 ML ONE (19:28)
[2018-11-16] MEDS ORDERED: IOHEXOL 300MG/ML 150 ML BTL ONE (19:28)
[2018-11-16 20:25] VITALS: BP 124/72; PULSE 78; RESP 17
== END 2018-11-16 20:25 | disposition home or self-care (01) ==
LOC: FTE 17:09
DX: N39.0 Urinary tract infection, site not specified (principal); N83.201 Unspecified ovarian cyst, right side; E11.9 Type 2 diabetes mellitus without complications; J45.909 Unspecified asthma, uncomplicated; I10 Essential (primary) hypertension
CPT/HCPCS: 36415; 74177; 76830; 76856; 80053; 81001; 81025; 82962; 85025; Q9967; Z7502; Z7610